=== PATIENT | male | born 1965 | race Caucasian/White ===

== ENCOUNTER 2023-06-21 14:22 | Outpatient (CLI) | payer OTHER, SELFPAY ==
--- NOTE | 2023-06-21 15:00 | CRLHL7_ITS ---
For Patients: As a result of the Cures Act, medical imaging exams and procedure reports are released immediately into your electronic medical record. You may view this report before your referring provider. If you have questions, please contact your health care provider. INDICATION: Low back pain. TECHNIQUE: Five views of the lumbar spine. COMPARISON: Three-view lumbar spine series June 17, 2023. FINDINGS: Multilevel degenerative disc disease best appreciated at L4 and L5 and less so at L3 with mild hypertrophic spurring. No acute compression fracture. No acute malalignment. Flexion and extension lateral views do not demonstrate any significant motion of the lumbar spine. Postsurgical change in the anterior abdominal wall with mesh placement. IMPRESSION: Degenerative disc disease at L4 and L5 and less so at L3. No abnormal motion on flexion or extension lateral views. Dictated by Yosef Lee MD @ 06/21/2023 3:42:33 PM (Electronically Signed)
== END 2023-06-21 14:23 | disposition home or self-care (01) ==
PROVIDERS: PCP Family Medicine; Visit Provider Orthopaedic Surgery
DX: M54.50 Low back pain, unspecified (principal); M51.36 Other intervertebral disc degeneration, lumbar region
CPT/HCPCS: 72110

== ENCOUNTER 2023-06-22 11:25 | Emergency (ER) | payer OTHER, SELFPAY ==
[2023-06-22] VITALS (12 sets, daily range): BP systolic 133–178; BP diastolic 92–121; PULSE 66–74; RESP 16–20; TEMP 36; O2SAT 89–96; BMI 32.8
--- NOTE | 2023-06-22 11:49 | ED.GENADULT ---
HPI - General Adult General Chief complaint: Back Injury/Pain Stated complaint: back pain Time Seen by Provider: 06/22/23 11:49 History of Present Illness HPI narrative: pt states has blown disc. mri yesterday at [facility]. hopefully surgery next week. pt can't tolerate lower R back pain that radiates down R leg. was taking percocet without relief. last percocet 0700 58-year-old man presenting to the emergency department complaint of severe radicular back pain. Sounds like an atraumatic event and began about a month ago. Started to have increasing low back pain and increasing radicular symptoms. Has been through a round of what sounds like a Medrol Dosepak. He describes bubbles of pain moving down his right buttock posterior thigh and to his foot. This morning though woke with much more burning pain and any movement makes it quite bad. He did take 2 tablets of Percocet 5/325 a believe about 5 hours ago along with Robaxin? On initial presentation he did try gabapentin and this has not been helpful. After this initial visit did see [facility] following MRI imaging. Apparently that showed a herniated disc at L5 compressing the right nerve root. He is just looking for some relief of pain at this point; something to get by until anticipated surgery next week. I do review his records with him; has preop forms. He was seen 3 days ago and a day ago in urgent care and in clinic respectively. Had lumbar x-rays done both days it looks like. Related Data Home Medications Medication Instructions Recorded Confirmed oxycodone-acetaminophen 5 mg-325 1 tab PO Q4-6H PRN 06/22/23 06/24/23 mg tablet (Endocet) sennosides 8.6 mg capsule (senna) 8.6 mg PO BID 06/24/23 06/24/23 Previous Rx's Medication Instructions Recorded gabapentin 300 mg capsule 300 mg PO TID #45 caps 06/22/23 hydromorphone 2 mg tablet 2 - 4 mg (1 - 2 x 2 mg) PO Q6H PRN 06/22/23 pain #15 tabs Allergies Allergy/AdvReac Type Severity Reaction Status Date / Time prednisone Allergy Mild Verified 06/24/23 13:52 Review of Systems Status of ROS: Reports: 6 or more systems reviewed and unremarkable except as noted in History and below PFSH PFS Surgical History (Updated 06/24/23 @ 14:27 by Kim Rockwell APRN, SIGNAL CIRCUIT DESIGNER) H/O right knee surgery ?Z98.890 - Other specified postprocedural states (ICD-10) History of testicular surgery ?Z98.890 - Other specified postprocedural states (ICD-10) H/O umbilical hernia repair ?Z98.890 - Other specified postprocedural states (ICD-10) ?Z87.19 - Personal history of other diseases of the digestive system (ICD-10) Neck pain with history of cervical spinal surgery ?M54.2 - Cervicalgia (ICD-10) ?Z98.890 - Other specified postprocedural states (ICD-10) Family History (Updated 06/24/23 @ 14:28 by Kim Rockwell APRN, SIGNAL CIRCUIT DESIGNER) Mother Myocardial infarction Father Kidney disease Social History (Updated 06/24/23 @ 14:33 by Kim Rockwell APRN, SIGNAL CIRCUIT DESIGNER) Narrative: . No children. Heating and air conditioning. Non-smoker. No illicit drug use. No alcohol. Smoking Status: Never smoker Little interest or pleasure in doing things: nearly every day Feeling down, depressed, or hopeless: not at all Exam Narrative: Exam Narrative: Pleasant. Has a bottle of water with him. Apparently has been ?pounding? water but this unfortunately results in the need to urinate often. Clearly seems uncomfortable. He is lying back flat in the bed with his thighs flexed and his feet flat on the bed. Straight leg raise clearly exacerbates these radicular symptoms. I believe he has severe increase in his pain that he is trying to suppress. Maybe a little weakness related to his pain. No loss of sensation. Heart is in a regular rate and rhythm. Mildly labored in his breathing. Const: Vital Signs, click to edit/add: Vital Signs - 24 hr 06/22/23 11:35 Temperature 96.8 F L Pulse Rate [Pulse Oximeter] 68 Respiratory Rate 20 Blood Pressure [Ri ght Upper Arm] 178/121 H Pulse Oximetry 93 Oxygen Delivery Me thod Room Air Documenting provider has reviewed patient's vital signs: yes Course Vital Signs Vital signs: Initial Vital Signs Temperature 96.8 F L 06/22/23 11:35 Temperature Source Temporal Artery Scan 06/22/23 11:35 Pulse Rate 68 06/22/23 11:35 Respiratory Rate 20 06/22/23 11:35 Blood Pressure 178/121 H 06/22/23 11:35 Blood Pressure Mean 140 H 06/22/23 11:35 Blood Pressure Position Supine 06/22/23 11:35 Pulse Oximetry 93 06/22/23 11:35 Oxygen Delivery Method Room Air 06/22/23 11:35 Vital Signs Temperature 96.8 F L 06/22/23 11:35 Pulse Rate 68 06/22/23 11:35 Respiratory Rate 20 06/22/23 11:35 Blood Pressure 178/121 H 06/22/23 11:35 Pulse Oximetry 93 06/22/23 11:35 Oxygen Delivery Method Room Air 06/22/23 11:35 Temperature 96.8 F L 06/22/23 11:35 Pulse Rate 67 06/22/23 14:15 Respiratory Rate 16 06/22/23 14:01 Blood Pressure 147/104 H 06/22/23 14:01 Pulse Oximetry 96 06/22/23 14:15 Oxygen Delivery Method Room Air 06/22/23 14:01 Medical Decision Making MDM Narrative Medical decision making narrative: Will try to bring his pain under control. Injection of Dilaudid, ketorolac and some oral lorazepam. Unsure whether not would benefit anymore at this point from prednisone. I do not think any further imaging would be beneficial at this time. On reassessment is significantly improved though still with good deal of pain. Feels can manage out of the ER at this time. See patient discharge plan Medical Records Medical records reviewed: Yes I reviewed the patient's medical records Discharge Plan Discharge Clinical Impression: Radicular low back pain Patient Disposition: Home w/ Parent or Adult Condition: Improved Additional Instructions: Continue to stay well hydrated. We can give you at bedside/portable urinal if needed. Use your crutches to take the weight off of that right leg. I appreciate that the Percocet you have did not help you get over this pain. Remember that each tablet of Percocet contains 325 mg of acetaminophen. You can take up to 1000 mg of acetaminophen up to every 6 hours. I understand also you are trying to avoid NSAIDs anticipating upcoming surgery. With that in mind will also avoid steroids. Can return to gabapentin. Can start at 300 mg 3 times daily and increase to 600 mg 3 times daily in a few days if needed. Will be sending in Dilaudid. This is however an opiate similar to Percocet and additionally sedating and constipating. Hydration in addition to fiber and in particular senna containing products can be helpful to avoid constipation. A senna can be taken maybe a couple of times daily while taking opiates. Prescriptions: New hydromorphone 2 mg tablet 2 - 4 mg PO Q6H PRN (Reason: pain) Qty: 15 0RF gabapentin 300 mg capsule 300 mg PO TID Qty: 45 0RF No Action senna 8.6 mg capsule 8.6 mg PO BID oxycodone-acetaminophen [Endocet] 5-325 mg tablet 1 tab PO Q4-6H PRN Follow Up/Referrals: Kendrick Ingram MD [Primary Care Provider] - Stand Alone Forms: MyHealth Info Instructions
[2023-06-22] MEDS: LORazepam 1 MG TABLET PO (12:42)
[2023-06-22] MEDS: HYDROmorphone 0.5 mg/0.5 ml inj 1.5 MG IM (12:42)
== END 2023-06-22 15:05 | disposition home or self-care (01) ==
PROVIDERS: Emergency Provider Family Medicine; PCP Family Medicine
DX: M54.16 Radiculopathy, lumbar region (principal)
CPT/HCPCS: 96372; 99284; A9270; J1170

== ENCOUNTER 2023-06-24 14:33 | Outpatient (CLI) | payer OTHER, SELFPAY | END 2023-06-24 14:34 | disposition home or self-care (01) | PROVIDERS: PCP Family Medicine; Visit Provider Nurse Practitioner Family | DX: Z01.818 Encounter for other preprocedural examination (principal) | CPT/HCPCS: 80053; 85025 ==

== ENCOUNTER 2024-05-19 13:23 | Outpatient (CLI) | payer OTHER, SELFPAY | END 2024-05-19 13:24 | disposition home or self-care (01) | LOC: NFLDREF 13:24 | PROVIDERS: PCP Family Medicine; Visit Provider Family Medicine | DX: Z13.228 Encounter for screening for other metabolic disorders (principal) | CPT/HCPCS: 80048 ==